=== PATIENT | female | born 1985 | race Caucasian/White ===

== ENCOUNTER 2018-11-02 09:26 | Emergency (ER) | payer MEDICAID ==
--- NOTE | 2018-11-02 09:58 | EDM.PDOC ---
ED HPI GENERAL MEDICAL PROBLEM - General Stated Complaint: WATER IN EAR Time Seen by Provider: 11/02/18 09:53 - History of Present Illness INITIAL COMMENTS - FREE TEXT/NARRATIVE: HISTORY AND PHYSICAL: History of present illness: Patient 33-year-old white female presents with a concern of right ear pain spelled worse over the last several days she denies fever chills nausea vomiting trauma or other concern Review of systems: As per history of present illness and below otherwise all systems reviewed and negative. Past medical history: As per history of present illness and as reviewed below otherwise noncontributory. Surgical history: As per history of present illness and as reviewed below otherwise noncontributory. Social history: No reported history of drug or alcohol abuse. Family history: As per history of present illness and as reviewed below otherwise noncontributory. Physical exam: HEENT: Atraumatic, normocephalic, pupils reactive, negative for conjunctival pallor or scleral icterus, mucous membranes moist, throat clear, neck supple, nontender, trachea midline. Patient has significant tenderness with any movement of her pinna her tympanic membrane is incompletely visualized secondary to cerumen. There is some swelling of the external auditory canal this is relatively minimal with mild erythema Lungs: Clear to auscultation, breath sounds equal bilaterally, chest nontender. Heart: S1S2, regular, negative for clicks, rubs, or JVD. Abdomen: Soft, nondistended, nontender. Negative for masses or hepatosplenomegaly. Negative for costovertebral tenderness. Pelvis: Stable nontender. Genitourinary: Deferred. Rectal: Deferred. Extremities: Atraumatic, negative for cords or calf pain. Neurovascular unremarkable. Neuro: Awake, alert, oriented. Cranial nerves II through XII unremarkable. Cerebellum unremarkable. Motor and sensory unremarkable throughout. Exam nonfocal. Diagnostics: None Therapeutics: None Impression: #1 right otalgia Definitive disposition and diagnosis as appropriate pending reevaluation and review of above. ED ROS GENERAL - Review of Systems Review Of Systems: ROS reveals no pertinent complaints other than HPI. ED EXAM, GENERAL - Physical Exam Exam: See Below (See dictation) Course - Vital Signs Text/Narrative:: I discussed with patient the limited exam due to cerumen impaction and gave her various options she agrees with empiric treatment and follow-up with private medical doctor and/or ENT. Departure - Departure Time of Disposition: 09:57 Disposition: Home, Self-Care 01 Condition: Good Clinical Impression: Otalgia of right ear - Discharge Information Referrals: PCP,None [Primary Care Provider] - Additional Instructions: The following information is given to patients seen in the emergency department who are being discharged to home. This information is to outline your options for follow-up care. We provide all patients seen in our emergency department with a follow-up referral. The need for follow-up, as well as the timing and circumstances, are variable depending upon the specifics of your emergency department visit. If you don't have a primary care physician on staff, we will provide you with a referral. We always advise you to contact your personal physician following an emergency department visit to inform them of the circumstance of the visit and for follow-up with them and/or the need for any referrals to a consulting specialist. The emergency department will also refer you to a specialist when appropriate. This referral assures that you have the opportunity for followup care with a specialist. All of these measure are taken in an effort to provide you with optimal care, which includes your followup. Under all circumstances we always encourage you to contact your private physician who remains a resource for coordinating your care. When calling for followup care, please make the office aware that this follow-up is from your recent emergency room visit. If for any reason you are refused follow-up, please contact the [facility] emergency department at and asked to speak to the emergency department charge nurse. [facility] - ENT [address] [place] [id number] [address] Ultram as prescribed follow-up private medical doctor and/or ENT above call schedule routine appointment and return as needed as discussed
== END 2018-11-02 10:15 | disposition home or self-care (01) ==
LOC: MW.ED 09:26
DX: H92.01 Otalgia, right ear (principal)
CPT/HCPCS: 99282